=== PATIENT | female | born 1965 | race Caucasian/White ===

== ENCOUNTER 2021-04-13 05:39 | Inpatient (IN) | payer OTHER ==
[~2021-04-13] VITALS: Ht 165.1 cm; Wt 90.5 kg
[2021-04-13 06:26] LABS: BASOPHIL 0.6 % (0-2); HCT 35.9 % (37.0-47.0); HGB 9.7 g/dl (12.5-16.0); LYMPHOCYTE 12.5 % (15-48); MCH 20.3 pg (25.0-31.0); MCV 74.9 fL (78.0-100.0); MONOCYTE 5.8 % (0-12); MPV 9.5 fL (6.0-9.5); NEUTROPHIL 70.6 % (41-80); NRBC 0; PLT 472 K/uL (150-400); RBC 4.79 M/uL (4.20-5.40); RDW 17.6 % (11.5-14.0)
[2021-04-13 07:03] LABS: BILIRUBIN - TOTAL 0.2 mg/dL (0.2-1.0); BUN/CREAT RATIO (CALC) 7.1 RATIO; CREATININE 0.7 mg/dL (0.51-0.95); GLOBULIN (CALCULATION) 3.9 g/dL; POTASSIUM 4.2 mmol/L (3.5-5.1); TOTAL PROTEIN 7.9 g/dL (6.4-8.2)
[2021-04-13 07:26] LABS: LACTIC ACID 0.3 mmol/L (0.4-1.9)
[2021-04-13 08:00] LABS: BILIRUBIN NEGATIVE (NEGATIVE); BLOOD NEGATIVE Ery/uL (NEGATIVE); CLARITY CLEAR (CLEAR); COLOR YELLOW (YELLOW); GLUCOSE (U) 2+ mg/dL (NORMAL); LEUKOCYTES NEGATIVE Leu/uL (NEGATIVE); NITRITE NEGATIVE (NEGATIVE); PROTEIN TRACE (LOW) mg/dL (NEGATIVE); SPECIFIC GRAVITY >=1.030 (1.001-1.030); UROBILINOGEN 0.2 mg/dL (0.2-1.0)
[2021-04-13 08:24] LABS: URINARY WBC RARE
[2021-04-13 08:55] LABS: CORONAVIRUS 2019 SARS-COV-2 NEGATIVE (NEGATIVE); INFLUENZA A NAA NEGATIVE (NEGATIVE)
[2021-04-14] MEDS ORDERED: MONTELUKAST SOD10 MG PO (03:30)
[2021-04-14] MEDS ORDERED: ABILIFY10 MG PO (03:34)
[2021-04-14] MEDS ORDERED: ESCITALOPRAM OX20 MG PO (03:35)
[2021-04-14] MEDS ORDERED: LEVETIRACETAM500 MG PO (03:35)
[2021-04-14] MEDS ORDERED: LEVOTHYROXINE75 MC1 PO (03:36)
[2021-04-14] MEDS ORDERED: PROPRANOLOL HCL40 MG PO (03:37)
[2021-04-14] MEDS ORDERED: AMLODIPINE BESYL5 MG PO (03:38)
[2021-04-15 04:55] LABS: BASOPHIL 0.1 % (0-2); EOSINOPHIL 0 % (0-5); HCT 29.8 % (37.0-47.0); LYMPHOCYTE 6.2 % (15-48); MCH 20.1 pg (25.0-31.0); MCHC 26.8 g/dL (32.0-36.0); MCV 74.9 fL (78.0-100.0); MONOCYTE 1.8 % (0-12); MPV 9.6 fL (6.0-9.5); NEUTROPHIL 91.3 % (41-80); NRBC 0.2; PLT 381 K/uL (150-400); RBC 3.98 M/uL (4.20-5.40); RDW 17.2 % (11.5-14.0); WBC 11.1 K/uL (4.0-10.5)
[2021-04-15 05:16] LABS: BUN/CREAT RATIO (CALC) 26.7 RATIO; CREATININE 0.6 mg/dL (0.51-0.95)
--- NOTE | 2021-04-15 15:42 | NUR ---
04/15/21 Ms. Lee lives in [place] with her boyfriend. She is supported by [facility] and [employer]. She has 02 at 2L, Bi-PAP, and nebulizer. No services are needed per Dr. Wilson.
[2021-04-16 06:31] LABS: BASOPHIL 0.1 % (0-2); EOSINOPHIL 0 % (0-5); HCT 30.1 % (37.0-47.0); HGB 8.3 g/dl (12.5-16.0); LYMPHOCYTE 7.8 % (15-48); MCH 20.2 pg (25.0-31.0); MCHC 27.6 g/dL (32.0-36.0); MCV 73.2 fL (78.0-100.0); MPV 9.6 fL (6.0-9.5); NEUTROPHIL 85.5 % (41-80); NRBC 0.2; PLT 390 K/uL (150-400); RBC 4.11 M/uL (4.20-5.40); WBC 12.4 K/uL (4.0-10.5)
[2021-04-16 06:56] LABS: CREATININE 0.59 mg/dL (0.51-0.95); POTASSIUM 3.7 mmol/L (3.5-5.1)
[2021-04-16] MEDS ORDERED: PREDNISONE 20MG20 MG PO (14:07)
[2021-04-16] MEDS ORDERED: ELIQUIS5 MG PO (14:07)
[2021-04-16] MEDS ORDERED: VIBRAMYCIN100 MG PO (14:07)
[2021-04-16] MEDS ORDERED: TRELEGY ELLIPT1 EAC1 INH (14:08)
[2021-04-16] MEDS ORDERED: AMLODIPINE BESYL5 MG PO (14:16)
[2021-04-16] MEDS ORDERED: ESCITALOPRAM OX20 MG PO (14:16)
[2021-04-16] MEDS ORDERED: LEVETIRACETAM500 MG PO (14:16)
== END 2021-04-16 15:50 | disposition home or self-care (01) | DRG 193 ==
LOC: FER 05:39 → FTCU 04-14 00:51
PROVIDERS: Emergency Medicine Emergency Medical Services; Hospitalist; ADMIT Family Medicine
PROC: 5A09457 Assistance with Respiratory Ventilation, 24-96 Consecutive Hours, Continuous Positive Airway Pressure (ICD-10-PCS; principal; 2021-04-13)
DX: J18.9 Pneumonia, unspecified organism (principal); J96.21 Acute and chronic respiratory failure with hypoxia; J96.22 Acute and chronic respiratory failure with hypercapnia; J44.1 Chronic obstructive pulmonary disease with (acute) exacerbation; J44.0 Chronic obstructive pulmonary disease with (acute) lower respiratory infection; Z20.822 Contact with and (suspected) exposure to COVID-19; I10 Essential (primary) hypertension; R73.03 Prediabetes; E66.9 Obesity, unspecified; E03.9 Hypothyroidism, unspecified; F31.9 Bipolar disorder, unspecified; G40.909 Epilepsy, unspecified, not intractable, without status epilepticus; T38.0X5A Adverse effect of glucocorticoids and synthetic analogues, initial encounter; Z99.81 Dependence on supplemental oxygen; Z88.0 Allergy status to penicillin; Z86.16 Personal history of COVID-19; Z86.711 Personal history of pulmonary embolism; Z79.01 Long term (current) use of anticoagulants; Z87.891 Personal history of nicotine dependence; Z98.890 Other specified postprocedural states; Z79.899 Other long term (current) drug therapy; Z68.32 Body mass index [BMI] 32.0-32.9, adult
CPT/HCPCS: 36415; 36600; 71045; 80048; 80053; 81001; 82803; 83036; 83605; 83880; 84145; 84484; 85025; 85379; 87040; 87088; 93005; 94010; 94640; 94660; 94664; 96365; 96367; 96375; 97165; 97530; J0692; J0696; J1650; J2310; J2543; J2930; J3370; J7050; J7512; U0002

== ENCOUNTER 2021-06-16 18:13 | Inpatient (IN) | payer OTHER ==
[~2021-06-16] VITALS: Ht 165.1 cm; Wt 89.0 kg
[~2021-06-16 18:13] MED LIST: ABILIFY10 MG PO; AMLODIPINE BESYL5 MG PO; ELIQUIS5 MG PO; ESCITALOPRAM OX20 MG PO; LEVETIRACETAM500 MG PO; LEVOTHYROXINE75 MC1 PO; MONTELUKAST SOD10 MG PO; PREDNISONE 20MG20 MG PO; PROPRANOLOL HCL40 MG PO; TRELEGY ELLIPT1 EAC1 INH; VIBRAMYCIN100 MG PO
[2021-06-16 18:49] LABS: BASOPHIL 0.9 % (0-2); EOSINOPHIL 11.4 % (0-5); HCT 40.5 % (37.0-47.0); HGB 10.9 g/dl (12.5-16.0); LYMPHOCYTE 13.5 % (15-48); MCH 19.6 pg (25.0-31.0); MCHC 26.9 g/dL (32.0-36.0); MCV 72.8 fL (78.0-100.0); MONOCYTE 8.7 % (0-12); MPV 9.4 fL (6.0-9.5); NEUTROPHIL 65.2 % (41-80); NRBC 0; PLT 450 K/uL (150-400); RBC 5.56 M/uL (4.20-5.40); RDW 18.4 % (11.5-14.0); WBC 11.7 K/uL (4.0-10.5)
[2021-06-16 19:06] LABS: BUN/CREAT RATIO (CALC) 16.4 RATIO; CREATININE 0.73 mg/dL (0.51-0.95); POTASSIUM 3.8 mmol/L (3.5-5.1)
[2021-06-16 20:12] LABS: CORONAVIRUS 2019 SARS-COV-2 NEGATIVE (NEGATIVE); INFLUENZA A NAA NEGATIVE (NEGATIVE)
[2021-06-16 22:19] LABS: FT4 (FREE T4) 1.9 ng/dL (0.76-1.46)
[2021-06-20 11:22] LABS: BASOPHIL 0.1 % (0-2); EOSINOPHIL 0 % (0-5); HCT 36.8 % (37.0-47.0); HGB 9.7 g/dl (12.5-16.0); LYMPHOCYTE 4.7 % (15-48); MCH 19.6 pg (25.0-31.0); MCHC 26.4 g/dL (32.0-36.0); MCV 74.5 fL (78.0-100.0); MONOCYTE 5.3 % (0-12); MPV 10.2 fL (6.0-9.5); NEUTROPHIL 88.9 % (41-80); NRBC 0; PLT 359 K/uL (150-400); RBC 4.94 M/uL (4.20-5.40); RDW 19.1 % (11.5-14.0); WBC 11.6 K/uL (4.0-10.5)
[2021-06-20 11:32] LABS: ALBUMIN 3.9 g/dL (3.4-5.0); BILIRUBIN - TOTAL 0.2 mg/dL (0.2-1.0); BUN/CREAT RATIO (CALC) 21.8 RATIO; CREATININE 0.55 mg/dL (0.51-0.95); GLOBULIN (CALCULATION) 3.3 g/dL; MAGNESIUM 2.1 mg/dL (1.8-2.4); POTASSIUM 4.1 mmol/L (3.5-5.1); TOTAL PROTEIN 7.2 g/dL (6.4-8.2)
[2021-06-21 06:57] LABS: BUN/CREAT RATIO (CALC) 22.4 RATIO; CREATININE 0.58 mg/dL (0.51-0.95); POTASSIUM 3.3 mmol/L (3.5-5.1)
[2021-06-22] MEDS ORDERED: PREDNISONE 20MG20 MG PO (09:49)
[2021-06-22] MEDS ORDERED: AZITHROMYCIN250 MG PO (09:49)
== END 2021-06-22 14:39 | disposition home or self-care (01) | DRG 193 ==
LOC: FER 18:13 → FICU 22:57 → FMS 22:57 → FTCU 22:57 → FOFB 06-18 09:34 → FTCU 06-18 09:55 → FMS 06-18 11:09
PROVIDERS: Allergy & Immunology Allergy; Internal Medicine; ADMIT Internal Medicine
PROC: 5A09357 Assistance with Respiratory Ventilation, Less than 24 Consecutive Hours, Continuous Positive Airway Pressure (ICD-10-PCS; principal; 2021-06-16)
PROC: 5A09357 Assistance with Respiratory Ventilation, Less than 24 Consecutive Hours, Continuous Positive Airway Pressure (ICD-10-PCS; 2021-06-20)
PROC: 5A09357 Assistance with Respiratory Ventilation, Less than 24 Consecutive Hours, Continuous Positive Airway Pressure (ICD-10-PCS; 2021-06-21)
PROC: 5A09357 Assistance with Respiratory Ventilation, Less than 24 Consecutive Hours, Continuous Positive Airway Pressure (ICD-10-PCS; 2021-06-22)
DX: J18.9 Pneumonia, unspecified organism (principal); J96.21 Acute and chronic respiratory failure with hypoxia; J96.22 Acute and chronic respiratory failure with hypercapnia; J44.1 Chronic obstructive pulmonary disease with (acute) exacerbation; J44.0 Chronic obstructive pulmonary disease with (acute) lower respiratory infection; F31.9 Bipolar disorder, unspecified; E03.8 Other specified hypothyroidism; Z20.822 Contact with and (suspected) exposure to COVID-19; G40.909 Epilepsy, unspecified, not intractable, without status epilepticus; G47.33 Obstructive sleep apnea (adult) (pediatric); R00.0 Tachycardia, unspecified; I10 Essential (primary) hypertension; E07.89 Other specified disorders of thyroid; Z86.711 Personal history of pulmonary embolism; Z99.81 Dependence on supplemental oxygen; Z86.16 Personal history of COVID-19; Z98.890 Other specified postprocedural states; Z87.891 Personal history of nicotine dependence; Z88.0 Allergy status to penicillin; Z79.899 Other long term (current) drug therapy; Z79.01 Long term (current) use of anticoagulants
CPT/HCPCS: 36415; 36600; 71045; 71275; 80048; 80053; 82803; 83735; 83880; 84145; 84439; 84443; 84484; 85025; 87040; 87077; 87186; 93005; 94640; 94660; 94664; 94667; 94668; 94760; 94762; A4216; J0692; J1100; J2930; J3360; J3370; J7030; J7040; J7512; Q9967; U0002